=== PATIENT | male | born 2000 | race African-American/Black ===

== ENCOUNTER 2020-12-12 10:46 | Emergency (ER) | payer OTHER, SELFPAY ==
--- NOTE | ~2020-12-12 | XR_ITS ---
EXAMINATION: XR chest 2V EXAM DATE: 12/12/2020 12:53 INDICATION: Nausea vomiting diarrhea, congestion. TECHNIQUE: Frontal and lateral projections of the chest obtained and reviewed. There is no prior mary dy for comparison. FINDINGS: The lungs are clear. There are no pleural effusions. The cardiomediastinal silhouette is within normal limits. There is no pneumothorax suspected. The bones and soft tissues are unremarkab le. IMPRESSION: No acute cardiopulmonary findings. Reviewed, dictated and finalized at location B.
[2020-12-12 10:57] VITALS: BP 129/86; PULSE 86; RESP 18; TEMP 36.9
--- NOTE | 2020-12-12 11:25 | ED.GENADULT ---
HPI - General Adult General Chief complaint: Nausea/Vomiting/Diarrhea Stated complaint: vomiting/nausea/fatigue Time Seen by Provider: 12/12/20 11:08 Source: patient History of Present Illness HPI narrative: Patient is a 20 y/o male complaining of nausea, vomiting and diarrhea starting 2 days ago. He states that he vomited twice during last 24 hours. His vomit is mostly liquid. He took Pepto Bismol which seem to help some. He has some diarrhea, but denies abdominal pain. He also has some cough and congestion. He denies fever. Related Data Allergies Allergy/AdvReac Type Severity Reaction Status Date / Time Penicillins Allergy Unknown Verified 12/12/20 11:50 Review of Systems Constitutional: Constitutional: Denies chills, Denies fever(s), Denies headache(s) and Denies weakness Eyes: Eyes: Denies blurry vision ENT: Denies headache(s), Reports nasal congestion and Denies neck pain Cardiovascular: Cardiovascular: Denies chest pain and Denies dyspnea Respiratory: Respiratory: Reports cough and Denies dyspnea Gastrointestinal: Gastrointestinal: Denies abdominal pain, Reports diarrhea, Reports nausea and Reports vomiting Genitourinary: Genitourinary: Denies hematuria and Denies dysuria Musculoskeletal: Musculoskeletal: Denies back pain and Denies neck pain Neurologic: Denies headache(s) and Denies weakness Exam Const: General: no acute distress and well developed Orientation/consciousness: oriented to person, oriented to place, oriented to time and patient oriented x3 HENMT: Head: normocephalic Ears: external ears normal General nose exam: Normal external nose present Eyes: General: appearance normal, both eyes and all related structures Conjunctivae: conjunctivae normal Neck: Neck: normal visual inspection and full ROM Chest: Chest palpation & inspection: normal inspection of the chest and no tenderness Resp: Effort & Inspection: normal respiratory effort Auscultation: clear to auscultation bilaterally Cardio: Rate: regular rate Rhythm: regular rhythm GI: GI Palp: No abdominal tenderness and Yes Soft to palpation Skin: General skin exam: normal color and turgor normal Neuro: General: oriented to person, oriented to place, oriented to time and patient oriented x3 Cognition (Neuro): normal cognition Extrem: General: normal to inspection, full ROM and no pedal edema Psych: Appearance: grossly normal Mental Status: mental status grossly normal Affect: normal affect Course Vital Signs Vital signs: Vital Signs Temperature 36.9 C 12/12/20 10:57 Pulse Rate 86 12/12/20 10:57 Respiratory Rate 18 12/12/20 10:57 Blood Pressure 129/86 12/12/20 10:57 Temperature 36.9 C 12/12/20 10:57 Pulse Rate 72 12/12/20 13:44 Respiratory Rate 18 12/12/20 13:44 Blood Pressure 131/77 12/12/20 13:44 Pulse Oximetry 100 12/12/20 13:44 Medical Decision Making Vital Signs Vital Signs: Vital Signs Temperature 36.9 C 12/12/20 10:57 Pulse Rate 86 12/12/20 10:57 Respiratory Rate 18 12/12/20 10:57 Blood Pressure 129/86 12/12/20 10:57 Temperature 36.9 C 12/12/20 10:57 Pulse Rate 72 12/12/20 13:44 Respiratory Rate 18 12/12/20 13:44 Blood Pressure 131/77 12/12/20 13:44 Pulse Oximetry 100 12/12/20 13:44 Lab Data Result diagrams: 12/12/20 11:32 12/12/20 11:32 Labs: Lab Results 12/12/20 12/12/20 12/12/20 Range/Units 11:32 11:32 12:02 WBC 10.5 H (4.5-10.0) K/mm3 RBC 5.30 (4.6-6.20) M/mm3 Hgb 16.0 (14.0-18.0) g/dL Hct 44.5 (42.0-52.0) % MCV 84.0 (80-100) fl MCH 30.2 (26-34) pg MCHC 36.0 (32-36) g/dl RDW 11.1 L (11.5-14.5) % Plt Count 319 (150-375) k/mm3 MPV 10.2 (7.4-10.4) fl Immature Gran % (Auto) 0.3 (0-0.5) % Neut % (Auto) 82.0 H (45.5-73.1) % Lymph % (Auto) 12.5 L (18.3-44.2) % [place] % (Auto) 4.8 (2.6-8.5) % Eos % (Auto) 0.1 (0-4.4) % Baso % (A
[2020-12-12 11:40] LABS: Basophils Percent Auto 0.3 % (0.2-1.2); Eosinophils Percent Auto 0.1 % (0-4.4); Hematocrit 44.5 % (42.0-52.0); Immature Granulocyte Absolute 0.03 K/mm3 (0.00-0.031); Immature Granulocyte Percent A 0.3 % (0-0.5); Lymphocytes Absolute Auto 1.32 K/mm3 (0.9-3.2); Lymphocytes Percent Auto 12.5 % (18.3-44.2); Mean Corpuscular Hemoglobin 30.2 pg (26-34); Mean Platelet Volume 10.2 fl (7.4-10.4); Monocytes Absolute Auto 0.5 K/mm3 (0.1-0.6); Monocytes Percent Auto 4.8 % (2.6-8.5); Neutrophils Absolute Auto 8.6 K/mm3 (1.3-6.7); Platelet Count Result 319 k/mm3 (150-375); Red Cell Distribution Width 11.1 % (11.5-14.5); White Blood Count 10.5 K/mm3 (4.5-10.0)
[2020-12-12] MEDS: SODIUM CHLORIDE 0.9% IV 1,000 ML 999 ML IV CONT (11:51)
[2020-12-12] MEDS: ONDANSETRON INJ 4 MG/2 ML VIAL IV PUSH (11:51)
[2020-12-12 11:55] LABS: Alanine Aminotransferase 41 U/L (4-50); Albumin Level 4.7 g/dL (3.5-5.1); Alkaline Phosphatase 84 U/L (38-126); Anion Gap 11 mmol/L (8-16); Aspartate Amino Transferase 36 U/L (17-59); Bilirubin,Total 1.2 mg/dL (0.2-1.3); Blood Urea Nitrogen 14 mg/dL (9-20); Calcium 10.3 mg/dL (8.4-10.2); Carbon Dioxide 25 mmol/L (22-30); Chloride 104 mmol/L (98-107); Estimated CRCL calculation 81 ml/min; Estimated Glomerular Filt Rate > 60; Glucose 98 mg/dL (75-110); Lipase 43 U/L (23-300); Potassium 3.7 mmol/L (3.4-5.0); Sodium 140 mmol/L (137-145)
[2020-12-12 11:57] VITALS: BP 129/76; PULSE 69
[2020-12-12 11:58] VITALS: BP 125/80; PULSE 65
[2020-12-12 11:59] VITALS: BP 110/71; PULSE 72
[2020-12-12 12:18] LABS: Add Urine Microscopic? YES; Appearance Urine Cloudy (Clear); Bacteria Urine Trace /hpf; Bilirubin Urine Negative (Negative); Blood Urine Negative (Negative); Color Urine Yellow (Yellow); Glucose Urine UA Negative (Negative); Ketones Urine 2+ mg/dL (Negative); Leukocyte Esterase Ur Negative LEU/UL (Negative); Mucus Urine Heavy /lpf; Nitrate Urine Negative (Negative); Protein Urine 1+ mg/dL (Negative); Squamous Epithelial Cell Urine Rare /hpf (Few); WBC Urine 0-3 /hpf
[2020-12-12 12:20] LABS: Specific Grav Ur 1.033 (1.001-1.035)
[2020-12-12 13:44] VITALS: BP 131/77; PULSE 72; RESP 18; O2SAT 100
== END 2020-12-12 13:55 | disposition home or self-care (01) ==
PROVIDERS: Emergency Medicine; Emergency Provider Emergency Medicine
DX: K52.9 Noninfective gastroenteritis and colitis, unspecified (principal); J06.9 Acute upper respiratory infection, unspecified
CPT/HCPCS: 36415; 71046; 80053; 81001; 83690; 85025; 96361; 96374; 99284; J2405; J7030

== ENCOUNTER 2021-12-10 00:31 | Emergency (ER) | payer OTHER, SELFPAY ==
--- NOTE | 2021-12-10 00:43 | ED.DENTAL ---
HPI - Dental/Oral General Chief complaint: Dental/Oral Stated complaint: bottom left tooth pain Time Seen by Provider: 12/10/21 00:36 History of Present Illness HPI Narrative: 21-year-old male presents emergency room for evaluation of left lower molar dental pain that occurred about 2 hours ago. Patient denies any injury or trauma. Patient states he gets regular dental care every 6 months. Related Data Allergies Allergy/AdvReac Type Severity Reaction Status Date / Time Penicillins Allergy Unknown Verified 12/12/20 11:50 Review of Systems Review of Systems: CONSTITUTIONAL: Denies fever, chills, or sweats. EYES: Denies visual changes, redness, or discharge. ENT: Reports dental pain CARDIOVASCULAR: Denies chest pain, palpitations, or edema. RESPIRATORY: Denies cough or dyspnea. GASTROINTESTINAL: Denies abdominal pain, nausea, vomiting, or diarrhea. GENITOURINARY: Denies dysuria or hematuria. SKIN: Denies rash or itching. MUSCULOSKELETAL: Denies back pain, joint pain, or myalgia. NEUROLOGIC: Denies headache, numbness, dizziness, or weakness. PSYCHIATRIC: Denies anxiety or depression. Exam Narrative: GENERAL: Well-appearing, well-nourished, and in no acute distress. HEAD: Normocephalic, atraumatic. EYES: PERRLA and EOMI. ENT: Tenderness to the left lower molar, no surrounding gingival erythema, no notable abscesses, no perimandibular tenderness CHEST: Clear to auscultation. No respiratory distress. No wheezes rales or rhonchi HEART: Regular rate and rhythm. No murmur heard. Normal peripheral pulses. ABDOMEN: Soft, nontender, nondistended, normal active bowel sounds. EXTREMITIES: Normal range of motion. No edema. SKIN: Warm, dry, no rash. NEURO: No focal deficits. Alert and oriented x3. PSYCH: Normal mood and affect. Discharge Plan Discharge Clinical Impression: Toothache Patient Disposition: Home, Self-Care Condition: Stable Instructions: Antibiotic Form, Toothache (ED) Additional Instructions: Follow-up with your dentist in the next 7 to 10 days. May take Tylenol and ibuprofen along with tramadol. Prescriptions: New clindamycin HCl 300 mg capsule 300 mg PO Q8H 7 Days Qty: 21 0RF tramadol 50 mg tablet 50 mg PO Q6H PRN (Reason: pain) Qty: 15 0RF clindamycin HCl 300 mg capsule 300 mg PO Q8H 7 Days Qty: 21 0RF Follow-up/Referrals: PHYSICIAN,[facility] [Primary Care Provider] - Stand Alone Forms: Work/School Release IP Time of Disposition: 00:47
[2021-12-10] MEDS: CLINDAMYCIN HCL 150 MG CAP 300 MG PO (01:04)
[2021-12-10 01:06] VITALS: BP 120/76; PULSE 74; RESP 16; TEMP 36.7; O2SAT 97
== END 2021-12-10 01:11 | disposition home or self-care (01) ==
PROVIDERS: Emergency Provider Nurse Practitioner Family
DX: K08.89 Other specified disorders of teeth and supporting structures (principal)
CPT/HCPCS: 99283; A9270

== ENCOUNTER 2023-08-23 14:20 | Emergency (ER) | payer OTHER, SELFPAY ==
--- NOTE | ~2023-08-23 | CT_ITS ---
EXAMINATION: CT brain wo con DATE: 08/23/2023 16:57 INDICATION: headaches . TECHNIQUE: Computed tomography (CT) of the head was performed without intravenous contrast. The mA wa s adjusted according to patient size. Iterative reconstruction technique was employed. The dose-lengt h product was 605.33 mGy-cm. COMPARISON: None. FINDINGS: No acute intracranial hemorrhage or extra-axial fluid collection. No hydrocephalus, mass, or herniation. No acute ischemic infarct. Unremarkable dural venous sinus attenuation. No acute osseous abnormality. The aerated spaces are clear. IMPRESSION: No acute intracranial process. Reviewed, dictated and finalized at location K. [facility] [employer]
[2023-08-23 14:57] VITALS: BP 137/73; PULSE 69; RESP 18; TEMP 36.6; O2SAT 100
--- NOTE | 2023-08-23 15:46 | ED.HA ---
HPI - Headache General Chief Complaint: Headache Stated Complaint: headache Time Seen by Provider: 08/23/23 15:28 Source: patient Mode of arrival: ambulatory Limitations: no limitations History of Present Illness HPI Narrative: This is a 23 year old male that presents to the ER for headaches. Ongoing over the last month. Reports right sided headaches that have been relieved with Excedrin. Associated nausea and vomiting. Reports history of similar headaches last year. Reports no current headache. Denies fever, vision changes, numbness, or weakness. Related Data Allergies Allergy/AdvReac Type Severity Reaction Status Date / Time Penicillins Allergy Unknown Verified 12/12/20 11:50 Review of Systems Review of Systems: CONSTITUTIONAL: Denies fever EYES: Denies visual changes GASTROINTESTINAL: Reports nausea, vomiting NEUROLOGIC: Denies numbness, or weakness. All systems reviewed & are unremarkable except as noted in HPI and below PMFSH Past Medical History Medical History (Updated 08/23/23 @ 17:21 by Kate Lange PA-C) No active medical problems Social History Social History (Updated 08/23/23 @ 15:55 by Kate Lange PA-C) Substance use: never Exam Narrative: GENERAL: Well-appearing, well-nourished, and in no acute distress. HEAD: Normocephalic, atraumatic. EYES: PERRLA and EOMI. ENT: Nares clear, no rhinorrhea or epistaxis. Mucous membranes moist. Oropharynx without tonsillar hypertrophy exudate or other lesions. Bilateral TMs pearly kahn non-bulging NECK: Supple. No adenopathy or masses. CHEST: Clear to auscultation. No respiratory distress. No wheezes rales or rhonchi HEART: Regular rate and rhythm. No murmur heard. Normal peripheral pulses. EXTREMITIES: Normal range of motion. No edema. Strength equal in bilateral upper and lower extremities (5/5) SKIN: Warm, dry, no rash. NEURO: No focal deficits. Alert and oriented x3. CN II-XII grossly intact. Normal gait PSYCH: Normal mood and affect Course Course Emergency Course: Patient updated on his workup and agrees with plan of care Vital Signs Vital signs: Vital Signs Temperature 97.8 F 08/23/23 14:57 Pulse Rate 69 08/23/23 14:57 Respiratory Rate 18 08/23/23 14:57 Blood Pressure 137/73 08/23/23 14:57 Pulse Oximetry 100 08/23/23 14:57 Oxygen Delivery Room Air 08/23/23 14:57 Temperature 97.8 F 08/23/23 14:57 Pulse Rate 69 08/23/23 14:57 Respiratory Rate 18 08/23/23 14:57 Blood Pressure 137/73 08/23/23 14:57 Pulse Oximetry 100 08/23/23 14:57 Oxygen Delivery Room Air 08/23/23 14:57 MDM - Headache MDM Narrative Medical decision making narrative: Patient presents to the emergency department for intermittent headaches ongoing over the last month. He is afebrile and nontoxic appearing. His vitals are stable. He is neurologically intact. He has no current headache. CT scan of his brain is normal. He will be given outpatient follow-up with neurology for his ongoing headaches. He was given warnings to return to the ER Differential Diagnosis Differential diagnosis: Likely migraine, tension headache, subarachnoid hemorrhage, sinusitis and other (brain mass) Imaging Data Radiologist's impression: ITS Impressions Head CT 08/23/23 17:03 IMPRESSION: No acute intracranial process. Critical Care Time Critical Care Time Critical Care Time: No Discharge Plan Discharge Clinical Impression: Headache Qualifiers: Headache type: unspecified Headache chronicity pattern: chronic headache Intractability: not intractable Qualified Code(s): R51.9 - Headache, unspecified Patient Disposition: Home, Self-Care Condition: Stable Instructions: General Headache (ED) Additional Instructions: Return to the emergency department if you experience fever, vision changes, chest pain, shortness of breath, persistent vomiting, weakness, numbness, or any other symptoms that are conc
== END 2023-08-23 17:27 | disposition home or self-care (01) ==
PROVIDERS: Emergency Provider Physician Assistant
DX: R51.9 Headache, unspecified (principal)
CPT/HCPCS: 70450; 99284